=== PATIENT | female | born 1975 | race American Indian/Alaskan Native ===

== ENCOUNTER 2016-11-27 18:09 | Emergency (ER) | payer OTHER ==
[2016-11-27 18:47] VITALS: BP 194/95
[2016-11-27 19:15] LABS: Basophils % (Auto) 0.3 % (0.0-1.8); Eosinophils % (Auto) 11.6 % (0.0-4.3); Hematocrit 31.5 % (30.3-42.9); Hemoglobin 10.7 gm/dl (10.1-14.3); Mean Corpuscular HGB Conc 34 % (30-34); Mean Corpuscular Hemoglobin 30 pg (28-32); Mean Corpuscular Volume 87 fl (79-97); Platelet Count 436 K/mm3 (140-440); Red Blood Count 3.62 M/mm3 (3.65-5.03); Red Cell Distribution Width 15.5 % (13.2-15.2); White Blood Count 7.7 K/mm3 (4.5-11.0)
[2016-11-27 19:30] LABS: Alanine Aminotransferase 10 units/L (7-56); Albumin 4.1 g/dL (3.9-5); Albumin/Globulin Ratio 1.1 %; Alkaline Phosphatase 76 units/L (35-129); Anion Gap 17 mmol/L; Bilirubin,Total 0.2 mg/dL (0.1-1.2); Blood Urea Nitrogen 13 mg/dL (7-17); Calcium 8.9 mg/dL (8.4-10.2); Carbon Dioxide 27 mmol/L (22-30); Chloride 94.6 mmol/L (98-107); Glucose 110 mg/dL (65-100); Lipase 28 units/L (13-60); Potassium 3.4 mmol/L (3.6-5.0); Sodium 135 mmol/L (137-145); Total Protein 7.7 g/dL (6.3-8.2)
[2016-11-28 00:05] LABS: Bilirubin,Urine NEG (Negative); Blood,Urine NEG (Negative); Ketones,Urine NEG (Negative); Leukocyte Esterase,Urine NEG (Negative); Mucus,Urine 3+ /HPF; Nitrite,Urine NEG (Negative); Protein,Urine <15 mg/dL mg/dL (Negative)
--- NOTE | 2016-11-29 15:16 | ED Elopement Review ---
ED Pt Elopement review - Results review Lab results: Laboratory Tests 11/27/16 11/27/16 11/27/16 18:53 18:53 Unknown WBC 7.7 RBC 3.62 L Hgb 10.7 Hct 31.5 MCV 87 MCH 30 MCHC 34 RDW 15.5 H Plt Count 436 Lymph % (Auto) 25.1 [place] % (Auto) 9.4 H Eos % (Auto) 11.6 H Baso % (Auto) 0.3 Lymph # 1.9 [place] # 0.7 Eos # 0.9 H Baso # 0.0 Seg Neutrophils % 53.6 Seg Neutrophils # 4.1 Sodium 135 L Potassium 3.4 L Chloride 94.6 L Carbon Dioxide 27 Anion Gap 17 BUN 13 Creatinine 0.5 L Estimated GFR > 60 BUN/Creatinine Ratio 26.00 Glucose 110 H Calcium 8.9 Total Bilirubin 0.2 AST 12 ALT 10 Alkaline Phosphatase 76 Total Protein 7.7 Albumin 4.1 Albumin/Globulin Ratio 1.1 Lipase 28 Urine Color Yellow Urine Turbidity Clear Urine pH 5.0 Ur Specific [place] 1.030 Urine Protein <15 mg/dl Urine Glucose (UA) Neg Urine Ketones Neg Urine Blood Neg Urine Nitrite Neg Ur Reducing Substances Not Reportable Urine Bilirubin Neg Urine Ictotest Not Reportable Urine Urobilinogen 4.0 Ur Leukocyte Esterase Neg Urine WBC (Auto) 4.0 Urine RBC (Auto) 2.0 U Epithel Cells (Auto) 4.0 Urine Mucus 3+ Urine HCG, Qual Negative - Call Back decision Pt Call Back Decision: No action required
== END 2016-11-28 01:30 | disposition left against medical advice (07) ==
LOC: ED 18:09
DX: R11.2 Nausea with vomiting, unspecified (principal); R19.7 Diarrhea, unspecified; R10.9 Unspecified abdominal pain; Z53.21 Procedure and treatment not carried out due to patient leaving prior to being seen by health care provider
CPT/HCPCS: 36415; 80053; 81001; 81025; 83690; 85025

== ENCOUNTER 2017-07-25 17:52 | Inpatient (IN) | payer OTHER ==
[2017-07-25 18:38] LABS: Basophils % (Auto) 1.6 % (0.0-1.8); Eosinophils % (Auto) 14.5 % (0.0-4.3); Hematocrit 32.7 % (30.3-42.9); Hemoglobin 10.7 gm/dl (10.1-14.3); Mean Corpuscular HGB Conc 33 % (30-34); Mean Corpuscular Hemoglobin 28 pg (28-32); Mean Corpuscular Volume 87 fl (79-97); Platelet Count 440 K/mm3 (140-440); Red Blood Count 3.78 M/mm3 (3.65-5.03); Red Cell Distribution Width 15.8 % (13.2-15.2); White Blood Count 7.4 K/mm3 (4.5-11.0)
--- NOTE | 2017-07-25 18:45 | Cat Scan Report ---
FINAL REPORT PROCEDURE: CT HEAD/BRAIN WO CON TECHNIQUE: Computerized tomography of the head was performed without contrast material. DLP 1619.50 mGy-cm. HISTORY: Neuro deficits \T\gt; 6hrs or symptoms present upon awakening. COMPARISON: No prior studies are available for comparison. FINDINGS: Skull and scalp: Normal. Paranasal sinuses: Normal. Ventricles and subarachnoid spaces: Normal. Cerebrum: No evidence of hemorrhage, acute infarction or mass . Cerebellum and brainstem: No evidence of hemorrhage, acute infarction or mass. Vasculature: Normal. Comments: None. IMPRESSION: No CT evidence of acute intracranial pathology. Recommend MRI of the brain for further evaluation if there is continued clinical concern and if patient has no contraindication to MRI. Findings were discussed by telephone with Dr. Cazares at 5:40 p.m. central standard time on 07/25/2017.
[2017-07-25 18:47] LABS: INR 0.9 (0.87-1.13)
[2017-07-25 18:48] LABS: Partial Thromboplastin Time 29.7 Sec. (24.2-36.6)
[2017-07-25 18:56] LABS: Anion Gap 17 mmol/L; BUN/Creatinine Ratio 23; Blood Urea Nitrogen 14 mg/dL (7-17); Calcium 9.4 mg/dL (8.4-10.2); Carbon Dioxide 26 mmol/L (22-30); Chloride 99.3 mmol/L (98-107); Glucose 84 mg/dL (65-100); Potassium 4.2 mmol/L (3.6-5.0); Sodium 138 mmol/L (137-145)
[2017-07-25] MEDS ORDERED: SUBLIMAZE IV ONE (20:11)
--- NOTE | 2017-07-25 21:35 | Emergency Department Report ---
ED Neuro Deficit HPI - General Chief Complaint: Neuro Symptoms/Deficit Stated Complaint: LEFT SIDE NUMBNESS AND LEG PAIN Time Seen by Provider: 07/25/17 18:36 Source: patient Mode of arrival: Ambulatory Limitations: No Limitations - History of Present Illness Initial Comments: Vision is a 41-year-old female past medical history of hypertension seizures and liver disease who presents with left sided weakness. She states that symptoms started initially at 1300 hrs. today. Patient states that when her symptoms occurred she initially felt pain and then paresthesia. She states her pain as a 7 out of 10 located to the left side of her body nothing made it better or worse she also had some weakness on the left side of her body. It radiated throughout her body. She also stated that she had some decreased peripheral vision in her left eye. Patient denies having any of these symptoms prior before in the past. Patient also states that she's having chest pains at around 10 self in the middle of her chest doesn't radiate it occurred when her symptoms occurred nothing made the chest pain better or worse. - Related Data Home Medications: Home Medications Medication Instructions Recorded Confirmed Last Taken Albuterol *Only Ed* [Proventil 2.5 mg INHALATION PRN PRN 08/20/15 05/30/16 Unknown 0.5% NEBS] Previous Rx's Medication Instructions Recorded Last Taken Type Hydrochlorothiazide [HCTZ] 25 mg PO QDAY #60 tablet 02/11/15 08/19/15 Rx Lisinopril [Zestril TAB] 40 mg PO QDAY #60 tablet 02/11/15 08/19/15 Rx cloNIDine [Catapres] 0.1 mg PO QHS #60 tablet 02/11/15 08/19/15 Rx Divalproex [Satish Duckworth] 125 mg PO BID #60 tablet 07/25/15 08/19/15 Rx AtorvaSTATin [Lipitor] 20 mg PO QHS #30 tablet 08/22/15 Unknown Rx Metoprolol [Lopressor TAB] 12.5 mg PO BID #60 tablet 08/22/15 Unknown Rx Rivaroxaban [Xarelto] 0 mg PO BID #42 tablet 05/30/16 Unknown Rx Cyclobenzaprine [Flexeril] 10 mg PO TID PRN #30 tablet 08/16/16 Unknown Rx Ibuprofen [Motrin] 800 mg PO Q8HR PRN #30 tablet 08/16/16 Unknown Rx Allergies/Adverse Reactions: Allergies Allergy/AdvReac Type Severity Reaction Status Date / Time Iodinated Contrast- Oral and Allergy Anaphylaxis Verified 08/22/15 08:07 IV Dye Penicillins Allergy Dizziness Verified 07/24/15 23:06 ED Review of Systems ROS: Stated complaint: LEFT SIDE NUMBNESS AND LEG PAIN Other details as noted in HPI Constitutional: denies: chills, fever Eyes: denies: eye pain, eye discharge, vision change ENT: denies: ear pain, throat pain Respiratory: denies: cough, shortness of breath, wheezing Cardiovascular: chest pain. denies: palpitations Endocrine: no symptoms reported Gastrointestinal: denies: abdominal pain, nausea, diarrhea Genitourinary: denies: urgency, dysuria, discharge Musculoskeletal: denies: back pain, joint swelling, arthralgia Skin: denies: rash, lesions Neurological: weakness, numbness, paresthesias. denies: headache Psychiatric: denies: anxiety, depression Hematological/Lymphatic: denies: easy bleeding, easy bruising ED Past Medical Hx - Past Medical History Previous Medical History?: Yes Hx Hypertension: Yes Hx Congestive Heart Failure: No Hx Diabetes: No Hx Liver Disease: Yes (cirrhosis) Hx Renal Disease: Yes Hx Seizures: Yes Hx Asthma: No Hx COPD: No Hx HIV: No Additional medical history: lupus, sarcodosis. Patient states that she has a history of cirrhosis from "fatty foods". - Surgical History Past Surgical History?: Yes Additional Surgical History: cryo surgery - Social History Smoking Status: Current Every Day Smoker Substance Use Type: None - Medications Home Medications: Home Medications Medication Instructions Recorded Confirmed Last Taken Type Hydrochlorothiazide [HCTZ] 25 mg PO QDAY #60 tablet 02/11/15 05/30/16 08/19/15 Rx Lisinopril [Zestril TAB] 40 mg PO QDAY #60 tablet 02/11/15 05/30/16 08/19/15 Rx cloNIDine [Catapres] 0.1 mg PO QHS #60 tablet 02/11/15 05/30/16 08/19/[address] [Depakote Dr] 125 mg PO BID #60 tablet 07/25/15 05/30/16 08/19/15 Rx Albuterol *Only Ed* [Proventil 2.5 mg INHALATION PRN PRN 08/20/15 05/30/16 Unknown History 0.5% NEBS] AtorvaSTATin [Lipitor] 20 mg PO QHS #30 tablet 08/22/15 05/30/16 Unknown Rx Metoprolol [Lopressor TAB] 12.5 mg PO BID #60 tablet 08/22/15 05/30/16 Unknown Rx Rivaroxaban [Xarelto] 0 mg PO BID #42 tablet 05/30/16 Unknown Rx Cyclobenzaprine [Flexeril] 10 mg PO TID PRN #30 tablet 08/16/16 Unknown Rx Ibuprofen [Motrin] 800 mg PO Q8HR PRN #30 tablet 08/16/16 Unknown Rx ED Neuro Physical Exam - General Limitations: No Limitations General appearance: alert, in no apparent distress Suspected Stroke: No - Head Head exam: Present: atraumatic, normocephalic - Eye Eye exam: Present: normal appearance - ENT ENT exam: Present: mucous membranes moist - Neck Neck exam: Present: normal inspection - Respiratory Respiratory exam: Present: normal lung sounds bilaterally. Absent: respiratory distress - Cardiovascular Cardiovascular Exam: Present: regular rate, normal rhythm. Absent: systolic murmur, diastolic murmur, rubs, gallop - GI/Abdominal GI/Abdominal exam: Present: soft, normal bowel sounds - Extremities Exam Extremities exam: Present: normal inspection - Back Exam Back exam: Present: normal inspection - Neurological Exam Neurological exam: Present: other - NIHSS Assessment Interval: Baseline 1a. Level of Consciousness: alert 1b. LOC Questions: answers correctly 1c. LOC Commands: performs tasks correctly 2. Best Gaze: normal 3. Visual: no visual loss 4. Facial Palsy: complete paralysis 5b. Motor Arm Right: no drift 5a. Motor Arm Left: no drift 6a. Motor Leg Left: some gravity effort 6b. Motor Leg Right: no drift 7. Limb Ataxia: absent 8. Sensory: normal 9. Best Language: no aphasia 10. Dysarthria: normal 11. Extinction/Inattention: no abnormality Total Score: 5 Stroke Severity: Moderate Stroke - Psychiatric Psychiatric exam: Present: normal affect, normal mood - Skin Skin exam: Present: warm, dry, intact, normal color. Absent: rash ED Course Vital Signs 07/25/17 07/25/17 07/25/17 18:10 18:44 19:00 Temperature 99.2 F 99.1 F 99.2 F Pulse Rate 84 79 93 H Respiratory 18 15 14 Rate Blood Pressure 198/108 Blood Pressure 181/93 179/90 [Right] O2 Sat by Pulse 100 98 Oximetry 07/25/17 07/25/17 07/25/17 19:21 19:30 19:45 Temperature Pulse Rate 101 H 94 H 94 H Respiratory 18 14 18 Rate Blood Pressure 179/90 179/90 Blood Pressure [Right] O2 Sat by Pulse 99 99 100 Oximetry 07/25/17 07/25/17 07/25/17 20:00 20:15 20:30 Temperature Pulse Rate 92 H 90 91 H Respiratory 13 12 14 Rate Blood Pressure 182/96 182/96 173/92 Blood Pressure [Right] O2 Sat by Pulse 99 100 98 Oximetry 07/25/17 07/25/17 07/25/17 20:45 21:01 21:15 Temperature Pulse Rate 88 89 92 H Respiratory 16 18 15 Rate Blood Pressure 173/92 145/79 145/79 Blood Pressure [Right] O2 Sat by Pulse 96 95 98 Oximetry 07/25/17 07/25/17 07/25/17 21:45 22:00 22:15 Temperature Pulse Rate 81 75 79 Respiratory 21 13 15 Rate Blood Pressure 145/79 162/90 162/90 Blood Pressure [Right] O2 Sat by Pulse 98 97 98 Oximetry 07/25/17 07/25/17 07/25/17 22:30 22:45 23:00 Temperature Pulse Rate 82 83 86 Respiratory 13 13 15 Rate Blood Pressure 164/85 164/85 179/105 Blood Pressure [Right] O2 Sat by Pulse 98 99 97 Oximetry 07/25/17 07/25/17 07/25/17 23:15 23:30 23:33 Temperature Pulse Rate 89 87 81 Respiratory 15 17 17 Rate Blood Pressure 179/105 165/102 165/102 Blood Pressure [Right] O2 Sat by Pulse 100 100 98 Oximetry 07/25/17 23:45 Temperature Pulse Rate 85 Respiratory 16 Rate Blood Pressure 165/102 Blood Pressure [Right] O2 Sat by Pulse 99 Oximetry - Lab Data Result diagrams: 07/25/17 18:16 07/25/17 18:16 Lab Results 07/25/17 07/25/17 07/25/17 Range/Units 18:12 18:16 18:16 WBC 7.4 (4.5-11.0) K/mm3 RBC 3.78 (3.65-5.03) M/mm3 Hgb 10.7 (10.1-14.3) gm/dl Hct 32.7 (30.3-42.9) % MCV 87 (79-97) fl MCH 28 (28-32) pg MCHC 33 (30-34) % RDW 15.8 H (13.2-15.2) % Plt Count 440 (140-440) K/mm3 Lymph % (Auto) 29.2 (13.4-35.0) % [place] % (Auto) 9.2 H (0.0-7.3) % Eos % (Auto) 14.5 H (0.0-4.3) % Baso % (Auto) 1.6 (0.0-1.8) % Lymph # 2.2 (1.2-5.4) K/mm3 [place] # 0.7 (0.0-0.8) K/mm3 Eos # 1.1 H (0.0-0.4) K/mm3 Baso # 0.1 (0.0-0.1) K/mm3 Seg Neutrophils % 45.5 (40.0-70.0) % Seg Neutrophils # 3.4 (1.8-7.7) K/mm3 PT 12.6 (12.2-14.9) Sec. INR 0.90 (0.87-1.13) APTT 29.7 (24.2-36.6) Sec. Thrombin Time (15.1-19.6) Sec. Sodium (137-145) mmol/L Potassium (3.6-5.0) mmol/L Chloride (98-107) mmol/L Carbon Dioxide (22-30) mmol/L Anion Gap mmol/L BUN (7-17) mg/dL Creatinine (0.7-1.2) mg/dL Estimated GFR ml/min BUN/Creatinine Ratio % Glucose (65-100) mg/dL POC Glucose 80 (70-105) Calcium (8.4-10.2) mg/dL Troponin T (0.00-0.029) ng/mL 07/25/17 07/25/17 Range/Units 18:16 18:16 WBC (4.5-11.0) K/mm3 RBC (3.65-5.03) M/mm3 Hgb (10.1-14.3) gm/dl Hct (30.3-42.9) % MCV (79-97) fl MCH (28-32) pg MCHC (30-34) % RDW (13.2-15.2) % Plt Count (140-440) K/mm3 Lymph % (Auto) (13.4-35.0) % [place] % (Auto) (0.0-7.3) % Eos % (Auto) (0.0-4.3) % Baso % (Auto) (0.0-1.8) % Lymph # (1.2-5.4) K/mm3 [place] # (0.0-0.8) K/mm3 Eos # (0.0-0.4) K/mm3 Baso # (0.0-0.1) K/mm3 Seg Neutrophils % (40.0-70.0) % Seg Neutrophils # (1.8-7.7) K/mm3 PT (12.2-14.9) Sec. INR (0.87-1.13) APTT (24.2-36.6) Sec. Thrombin Time 16.5 (15.1-19.6) Sec. Sodium 138 (137-145) mmol/L Potassium 4.2 (3.6-5.0) mmol/L Chloride 99.3 (98-107) mmol/L Carbon Dioxide 26 (22-30) mmol/L Anion Gap 17 mmol/L BUN 14 (7-17) mg/dL Creatinine 0.6 L (0.7-1.2) mg/dL Estimated GFR > 60 ml/min BUN/Creatinine Ratio 23 % Glucose 84 (65-100) mg/dL POC Glucose (70-105) Calcium 9.4 (8.4-10.2) mg/dL Troponin T < 0.010 (0.00-0.029) ng/mL - EKG Data -: EKG Interpreted by Me 07/26/17 01:09 EKG shows normal sinus rhythm no ST segment elevations or T-wave - Radiology Data Radiology results: report reviewed, image reviewed CT head: Shows no acute intracranial process Chest x-ray: Shows no acute cardiopulmonary disease - Medical Decision Making Chief medical diagnosis: TIA Differential medical diagnosis: Non-STEMI, hemorrhagic stroke, metabolic abnormality, Rajiv's paralysis, hypoglycemia I will get CT head, IV pain medication, chest x-ray, troponin, CBC, CMP Due to patient having TIA symptoms and chest pain patient will be admitted to the hospital for further workup. Patient will need an MRI. Discussed plan with patient patient agrees with plan. Patient is not TPA candidate as her symptoms started 5 hours prior to onset her NIH stroke scale is 5 however she is able to fully move her leg now. Critical care attestation.: If time is entered above; I have spent that time in minutes in the direct care of this critically ill patient, excluding procedure time. ED Disposition Clinical Impression: Left leg weakness, Chest pain in adult TIA (transient ischemic attack) Qualifiers: Transient cerebral ischemia type: unspecified Qualified Code(s): G45.9 - Transient cerebral ischemic attack, unspecified Disposition: 09 OP ADMIT IP TO THIS HOSP Is pt being admited?: Yes Does the pt Need Aspirin: No Condition: Stable
[2017-07-26] MEDS ORDERED: ZOFRAN IV PRN (00:23)
[2017-07-26] MEDS ORDERED: MILK OF MAGNESIA PO PRN (00:23)
[2017-07-26] MEDS ORDERED: SODIUM CHLORIDE FLUSH SYRINGE 10 ML IV PRN (00:23)
[2017-07-26] MEDS ORDERED: DULCOLAX PR PRN (00:23)
[2017-07-26] MEDS ORDERED: APRESOLINE IV PRN (00:23)
--- NOTE | 2017-07-26 00:30 | History and Physical Report ---
History of Present Illness Date of examination: 07/25/17 Date of admission: 07/25/17 23:15 History of present illness: 41-year-old woman with a history of lupus, sarcoid, seizure comes emergency room with complaints of left-sided weakness and numbness. Also complaining of Chest pain, t is in the left epigastric area which she is unable to describe, intermittent in nature lasting for 5 minutes, intensity 7/10, no radiation and she cannot identify exacerbating or relieving factors. Also complaining of dizziness. No nausea vomiting, diaphoresis or palpitation. Patient stopped taking xarelto to a few months ago because it made her feel tired. Also complaining of left flank pain Review Of Systems: Constitutional: no weight loss Ears, eyes, nose, mouth and throat: no nasal congestion, no nasal discharge, no sinus pressure, blurry vision, diplopia Neck: No neck pain or rigidity. Cardiovascular: no orthopnea, palpitations Respiratory: No shortness of breath, cough Gastrointestinal:no abdominal pain, hematochezia Genitourinary : no dysuria, frequency , hematuria Musculoskeletal: no muscle ache Integumentary: no rash, no pruritis Neurological: + parathesias, focal weakness Endocrine: no cold or heat intolerance, no polyuria or polydipsia Hematologic/Lymphatic: no easy bruising, no easy bleeding, no gland swelling Allergic/Immunologic: no urticaria, no angioedema. PAST SURGICAL HISTORY: None SOCIAL HISTORY: Smoke half pack a day, no alcohol or drugs FAMILY HISTORY: Hypertension Medications and Allergies Allergies Allergy/AdvReac Type Severity Reaction Status Date / Time Iodinated Contrast- Oral and Allergy Anaphylaxis Verified 08/22/15 08:07 IV Dye Penicillins Allergy Dizziness Verified 07/24/15 23:06 Home Medications Medication Instructions Recorded Confirmed Last Taken Type Hydrochlorothiazide [HCTZ] 25 mg PO QDAY #60 tablet 02/11/15 05/30/16 08/19/15 Rx Lisinopril [Zestril TAB] 40 mg PO QDAY #60 tablet 02/11/15 05/30/16 08/19/15 Rx cloNIDine [Catapres] 0.1 mg PO QHS #60 tablet 02/11/15 05/30/16 08/19/[address] [Satish Duckworth] 125 mg PO BID #60 tablet 10/05/30/16 08/19/15 Rx Albuterol *Only Ed* [Proventil 2.5 mg INHALATION PRN PRN 08/20/15 05/30/16 Unknown History 0.5% NEBS] AtorvaSTATin [Lipitor] 20 mg PO QHS #30 tablet 08/22/15 05/30/16 Unknown Rx Metoprolol [Lopressor TAB] 12.5 mg PO BID #60 tablet 08/22/15 05/30/16 Unknown Rx Rivaroxaban [Xarelto] 0 mg PO BID #42 tablet 05/30/16 Unknown Rx Cyclobenzaprine [Flexeril] 10 mg PO TID PRN #30 tablet 08/16/16 Unknown Rx Ibuprofen [Motrin] 800 mg PO Q8HR PRN #30 tablet 08/16/16 Unknown Rx Active Meds: Active Medications Acetaminophen (Tylenol) 650 mg PO Q4H PRN PRN Reason: Pain, Mild (1-3) Aspirin (Aspirin) 325 mg PO QDAY JEFFREY Bisacodyl (Dulcolax) 10 mg [place] QDAY PRN PRN Reason: Constipation Hydralazine HCl (Apresoline) 5 mg IV Q6H PRN PRN Reason: Keep SBP between 160-185 mm Hg Magnesium Hydroxide (Milk Of Magnesia) 30 ml PO Q4H PRN PRN Reason: Constipation Ondansetron HCl (Zofran) 4 mg IV Q8H PRN PRN Reason: N/V unrelieved by Reglan Simvastatin (Zocor) 20 mg PO QHS JEFFREY Sodium Chloride (Sodium Chloride Flush Syringe 10 Ml) 10 ml INJ PRN PRN PRN Reason: LINE FLUSH Exam - Physical Exam Narrative exam: Gen. appearance: Patient lying in bed, no apparent distress HEENT: Normocephalic, atraumatic, pupils equally round and reactive to light, extraocular movement intact, and no sclericterus,. No JVD or thyromegaly or nodule,neck supple, no carotid bruit ,mucous membranes moist, no exudate or erythema Heart: S1, S2, regular rate and rhythm Lungs: Clear to auscultation bilaterally, breathing comfortable Abdomen: Positive bowel sounds, nontender, nondistended, no organomegaly Extremity: No edema, cyanosis, clubbing Skin: No rash, nodules, warm, dry Neuro: Oriented 3, cranial nerves II-12 intact, speech is fluent, motor and sensory intact - Constitutional Vitals: Temp Pulse Resp BP Pulse Ox 99.2 F 85 16 165/102 99 07/25/17 19:00 07/25/17 23:45 07/25/17 23:45 07/25/17 23:45 07/25/17 23:45 Results - Labs CBC & Chem 7: 07/25/17 18:16 07/25/17 18:16 Labs: Abnormal lab results 07/25/17 Range/Units 23:30 D-Dimer 832.33 H (0-234) ng/mlDDU - Imaging and Cardiology EKG: image reviewed CT Scan - head: report reviewed Assessment and Plan Acute CVA Chest pain Left leg pain Lupus Sarcoid Seizure Admit to medicine [place] MRI, carotid Doppler, echo Do neuro checks, swallow screen [employer] neurology, physical and occupational therapy Start aspirin, statin, restart xarelto Check cardiac enzymes,d-dimer, Doppler of the lower extremity continue appropriate outpatient medications, dvt to prophylaxis initiated
[2017-07-26] MEDS: XARELTO PO SCH ×3 (01:08→16:25)
[2017-07-26] MEDS: TYLENOL PO PRN ×2 (01:08→05:54)
[2017-07-26 01:29] LABS: Creatine Kinase 69 units/L (30-135)
[2017-07-26 01:30] LABS: Creatine Kinase MB < 1.0 ng/mL (0.0-4.0)
[2017-07-26 06:36] LABS: Creatine Kinase 65 units/L (30-135); Creatine Kinase MB < 1.0 ng/mL (0.0-4.0)
--- NOTE | 2017-07-26 09:11 | XRay Report ---
AP CHEST: HISTORY: chest pain AP view of the chest demonstrates a normal mediastinal and cardiac contour with clear lungs and normal bony and soft tissue structures. IMPRESSION: Unremarkable AP chest. No acute process noted.
--- NOTE | 2017-07-26 09:12 | Nuclear Medicine Report ---
LUNG SCAN, VENTILATION AND PERFUSION: History: Chest pain. Technique: 5mci of Tc99m MAA was infused for the perfusion images. 15mci XE 133 gas was inhaled for the ventilatory images. Correlation is made with a chest x-ray dated 07/25/17. Findings: Inhalation of Xenon gas demonstrates a normal distribution of the activity throughout both lungs. There is mild retention of the radiotracer in both lungs suggesting mild obstructive pulmonary disease. After injection of Technetium 99m macroaggregated albumin gamma camera imaging of the lungs in multiple projections demonstrates normal pulmonary contours with a homogeneous distribution of activity. No focal areas of perfusion deficiency are identified. IMPRESSION: Low probability for pulmonary embolus.
[2017-07-26] MEDS: BABY ASPIRIN PO SCH (09:59)
[2017-07-26] MEDS ORDERED: ASPIRIN PO SCH (10:00)
--- NOTE | 2017-07-26 12:31 | Consultation ---
History of Present Illness - Reason for Consult Consult date: 07/26/17 stroke - History of Present Illness full note is dicated the CT and MRI of the brain are both normal and suspect this is HTN related do not see in the [employer] and diagnostic features of sarcoidosis the D-Dimer test is very abnormal this is being assessed Thanks for consult pulmonary studies in progress patient by report on Xarelto but PT is normal ! Medications and Allergies Allergies Allergy/AdvReac Type Severity Reaction Status Date / Time Iodinated Contrast- Oral and Allergy Anaphylaxis Verified 08/22/15 08:07 IV Dye Penicillins Allergy Dizziness Verified 07/24/15 23:06 Home Medications Medication Instructions Recorded Confirmed Last Taken Type Hydrochlorothiazide [HCTZ] 25 mg PO QDAY #60 tablet 02/11/15 07/26/17 1 Day Ago Rx Lisinopril [Zestril TAB] 40 mg PO QDAY #60 tablet 02/11/15 07/26/17 1 Day Ago Rx cloNIDine [Catapres] 0.1 mg PO QHS #60 tablet 02/11/15 07/26/17 1 Day Ago Rx D[address] [Depakote Dr] 125 mg PO BID #60 tablet 07/25/15 07/26/17 1 Day Ago Rx AtorvaSTATin [Lipitor] 20 mg PO QHS #30 tablet 08/22/15 07/26/17 1 Day Ago Rx Metoprolol [Lopressor TAB] 12.5 mg PO BID #60 tablet 08/22/15 07/26/17 1 Day Ago Rx Rivaroxaban [Xarelto] 0 mg PO BID #42 tablet 05/30/16 07/26/17 1 Day Ago Rx Active Meds: Active Medications Acetaminophen (Tylenol) 650 mg PO Q4H PRN PRN Reason: Pain, Mild (1-3) Last Admin: 07/26/17 05:54 Dose: 650 mg Aspirin (Baby Aspirin) 81 mg PO QDAY JEFFREY Last Admin: 07/26/17 09:59 Dose: Not Given Bisacodyl (Dulcolax) 10 mg [place] QDAY PRN PRN Reason: Constipation Hydralazine HCl (Apresoline) 5 mg IV Q6H PRN PRN Reason: Keep SBP between 160-185 mm Hg Last Admin: 07/26/17 01:18 Dose: 5 mg Magnesium Hydroxide (Milk Of Magnesia) 30 ml PO Q4H PRN PRN Reason: Constipation Ondansetron HCl (Zofran) 4 mg IV Q8H PRN PRN Reason: N/V unrelieved by Reglan Rivaroxaban (Xarelto) 10 mg PO DAILY JEFFREY PRN Reason: Protocol Simvastatin (Zocor) 20 mg PO QHS [facility] Sodium Chloride (Sodium Chloride Flush Syringe 10 Ml) 10 ml IV PRN PRN PRN Reason: LINE FLUSH Exam - Constitutional Vitals: Temp Pulse Resp BP Pulse Ox 98.3 F 88 20 150/96 96 07/26/17 04:42 07/26/17 04:42 07/26/17 04:42 07/26/17 04:42 07/26/17 04:42 Results - Labs CBC & Chem 7: 07/25/17 18:16 07/25/17 18:16 Labs: Abnormal lab results 07/25/17 Range/Units 23:30 D-Dimer 832.33 H (0-234) ng/mlDDU
--- NOTE | 2017-07-26 12:35 | Magnetic Resonance Report ---
MRI OF THE BRAIN WITHOUT CONTRAST: HISTORY: Stroke, CVA PROCEDURE: Multiplanar, multisequence MR imaging of the brain without IV contrast was performed. FINDINGS: Compared to the CT head performed 07/25/17. The brain parenchyma signal intensity and its peres white interface are within normal limits on all sequences. No evidence for acute ischemia, hemorrhage or mass. No chronic infarct or extra-axial fluid collection. The midline structures are central. The basal cisterns are patent. Normal ventricular size. The orbital cavities and sella turcica demonstrate no abnormality. The visualized paranasal sinuses and mastoid air cells are well aerated. IMPRESSION: Unremarkable non-enhanced MRI of the brain.
[2017-07-26] MEDS ORDERED: MORPHINE IV PRN (15:13)
[2017-07-26] MEDS ORDERED: ZOCOR PO SCH (22:00)
--- NOTE | 2017-07-26 23:26 | Progress Note ---
Assessment and Plan Assessment and plan: 41-year-old woman with a history of lupus, sarcoid, seizure comes emergency room with complaints of left-sided weakness and numbness. Also complaining of Chest pain, t is in the left epigastric area which she is unable to describe, intermittent in nature lasting for 5 minutes, intensity 7/10, no radiation and she cannot identify exacerbating or relieving factors. Also complaining of dizziness. No nausea vomiting, diaphoresis or palpitation. Patient stopped taking xarelto to a few months ago because it made her feel tired. Also complaining of left flank paiin Leftsided trainsent Hemiplegia possible TIA Presumed CVA Atypical chest pain Left leg pain POA Left leg pain Lupus Sarcoidosis Seizure Plan CT and MRI negative. 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 continue appropriate outpatient medications, dvt to prophylaxis initiated [facility] care at [facility] History Interval history: pateint seen and examined this am, no acute distress but sometimes she reports headaches, that is debilitating Hospitalist Physical - Constitutional Vitals: Temp Pulse Resp BP Pulse Ox 98.3 F 89 18 155/89 99 07/26/17 19:51 07/26/17 19:51 07/26/17 19:51 07/26/17 19:51 07/26/17 19:51 General appearance: Present: no acute distress - EENT Eyes: Present: PERRL, EOM intact ENT: hearing intact, clear oral mucosa, dentition normal - Neck Neck: Present: supple, normal ROM - Respiratory Respiratory: bilateral: CTA - Cardiovascular Rhythm: regular Heart Sounds: Present: S1 & S2 - Extremities Extremities: no ischemia, pulses symmetrical, No edema, normal temperature, normal color Extremity abnormal: deformity Peripheral Pulses: within normal limits - Abdominal General gastrointestinal: soft, non-tender, non-distended, normal bowel sounds - Integumentary Integumentary: Present: clear, warm, dry - Psychiatric Psychiatric: appropriate mood/affect, intact judgment & insight, memory intact, cooperative - Neurologic Neurologic: CNII-XII intact - Allied Health Allied health notes reviewed: nursing, social work Results - Labs CBC & Chem 7: 07/25/17 18:16 07/25/17 18:16 Labs: Laboratory Last Values WBC 7.4 K/mm3 (4.5-11.0) 07/25/17 18:16 RBC 3.78 M/mm3 (3.65-5.03) 07/25/17 18:16 Hgb 10.7 gm/dl (10.1-14.3) 07/25/17 18:16 Hct 32.7 % (30.3-42.9) 07/25/17 18:16 MCV 87 fl (79-97) 07/25/17 18:16 MCH 28 pg (28-32) 07/25/17 18:16 MCHC 33 % (30-34) 07/25/17 18:16 RDW 15.8 % (13.2-15.2) H 07/25/17 18:16 Plt Count 440 K/mm3 (140-440) 07/25/17 18:16 Lymph % (Auto) 29.2 % (13.4-35.0) 07/25/17 18:16 [place] % (Auto) 9.2 % (0.0-7.3) H 07/25/17 18:16 Eos % (Auto) 14.5 % (0.0-4.3) H 07/25/17 18:16 Baso % (Auto) 1.6 % (0.0-1.8) 07/25/17 18:16 Lymph # 2.2 K/mm3 (1.2-5.4) 07/25/17 18:16 [place]rill # 0.7 K/mm3 (0.0-0.8) 07/25/17 18:16 Eos # 1.1 K/mm3 (0.0-0.4) H 07/25/17 18:16 Baso # 0.1 K/mm3 (0.0-0.1) 07/25/17 18:16 Seg Neutrophils % 45.5 % (40.0-70.0) 07/25/17 18:16 Seg Neutrophils # 3.4 K/mm3 (1.8-7.7) 07/25/17 18:16 PT 12.6 Sec. (12.2-14.9) 07/25/17 18:16 INR 0.90 (0.87-1.13) 07/25/17 18:16 APTT 29.7 Sec. (24.2-36.6) 07/25/17 18:16 Thrombin Time 16.5 Sec. (15.1-19.6) 07/25/17 18:16 D-Dimer 832.33 ng/mlDDU (0-234) H 07/25/17 23:30 Sodium 138 mmol/L (137-145) 07/25/17 18:16 Potassium 4.2 mmol/L (3.6-5.0) 07/25/17 18:16 Chloride 99.3 mmol/L (98-107) 07/25/17 18:16 Carbon Dioxide 26 mmol/L (22-30) 07/25/17 18:16 Anion Gap 17 mmol/L 07/25/17 18:16 BUN 14 mg/dL (7-17) 07/25/17 18:16 Creatinine 0.6 mg/dL (0.7-1.2) L 07/25/17 18:16 Estimated GFR > 60 ml/min 07/25/17 18:16 BUN/Creatinine Ratio 23 % 07/25/17 18:16 Glucose 84 mg/dL (65-100) 07/25/17 18:16 POC Glucose 80 (70-105) 07/25/17 18:12 Calcium 9.4 mg/dL (8.4-10.2) 07/25/17 18:16 Total Creatine Kinase 65 units/L (30-135) 07/26/17 05:30 CK-MB (CK-2) < 1.0 ng/mL (0.0-4.0) 07/26/17 05:30 CK-MB (CK-2) Rel Index 1.5 (0-4) 07/26/17 05:30 Troponin T < 0.010 ng/mL (0.00-0.029) 07/26/17 05:30
[2017-07-27] MEDS: TYLENOL PO PRN ×2 (03:59→09:09)
--- NOTE | 2017-07-27 05:10 | Consultation ---
LOCATION: Room #485. HISTORY OF PRESENT ILLNESS: This is a 41-year-old black female with a long history of hypertension who presents to the Emergency Room with an elevated blood pressure of 198/108, complaining of left-sided weakness, left-sided sensory loss. She had had pain also ____ to the left side of her head. The pain did not radiate. She also has some mild chest pain. MEDICATIONS: She was taking clonidine, Depakote, atorvastatin, Lopressor, Xarelto, cyclobenzaprine, ibuprofen. REVIEW OF SYSTEMS: The patient denied any fever. Her major complaints at the time she was initially seen was left-sided numbness and leg pain. PAST MEDICAL HISTORY: She has a prior medical history of having ____ surgery. She has lupus, sarcoidosis and a history of cirrhosis from eating fatty foods by her history. PHYSICAL EXAMINATION: GENERAL: Shows slight weakness of the left arm, patchy sensory loss noted in the left arm, leg movements are normal, cranial nerves are entirely intact. Visual torres are full. Fundi are benign. Speech clear. Affect appropriate. NECK: Supple. No meningismus present. PRESENT VITAL SIGNS: Revealed the blood pressure to be 156/96, temperature is 98.3, pulse rate is 88, and respirations are 18. No seizure activity present. IMPRESSION: This patient's examination seems to be resolving as far as the sensory loss, motor weakness. I have reviewed over her CT scan, it is normal. I have also reviewed over the MRI scan, both diffusion-weighted images, T1 and T2 weighted images and there are no abnormalities of the type seen in stroke. Therefore, there is a suggestion is this is hypertensive encephalopathy as the cause of her symptoms. I am not sure of this history of her saying she has cirrhosis to the liver. I reviewed over her PT, it is 12.6 and I noted that her creatinine is 0.6. I will review over old records about this. The D-dimer test at this point is 832 and she is undergoing further evaluations for pulmonary function, this may be the origin of some of her symptoms. She is undergoing a workup for pulmonary embolization. I do note in her history that she was supposedly taking Xarelto, but her PT does not indicate that this was having any measurable effect. JOB# [id number] CAITLYN/ARABELLA
[2017-07-27] MEDS: XARELTO PO SCH (09:09)
[2017-07-27] MEDS: BABY ASPIRIN PO SCH (09:09)
--- NOTE | 2017-07-27 11:07 | Discharge Summary ---
Providers - Providers Date of Admission: 07/25/17 23:15 Date of discharge: 07/27/17 Attending physician: TOBI ZAVALA 07/26/17 Consult to Physician [CONS] Routine Consulting Provider: LAVELLE VALLADARES Reason For Exam: cva Place consult to:: neuro Notified:: office Phone number called:: [phone] Was contact made?: Yes If yes, spoke with:: amari Time called:: 09:21 07/26/17 00:23 Occupational Therapy Evaluate and Treat [CONS] Routine Comment: Reason For Exam: Neuro deficits Physical Therapy Evaluation and Treat [CONS] Routine Comment: Reason For Exam: Neuro deficits Primary care physician: HADOOP ENGINEER Hospitalization Condition: Stable Hospital course: Patient is a 41-year-old woman with a history of lupus, sarcoidosis, seizure disorder, migraines, chronic back pains (under the care of Dr. Sage Dunham at [facility], had mri back and seen a specialist) and tobacco dependancy who presented to the emergency room with complaints of left-sided weakness, frontal headaches, cp and numbness. Leftsided trainsent Hemiplegia possible TIA CVA ruled out Atypical chest pain, costochronditis suspected Left leg pain POA, appears to be Sciatica, which is chronic and under the care of Dr. Dunham Lupus Sarcoidosis Seizure -Brain CT and MRI unremarkale -CXR unremarkable -v/q lungs low probability for PE -TTE: lvh, est ef 55-60%, abnormal diastolic relaxation Disposition: DC-01 TO HOME OR SELFCARE Time spent for discharge: 32 minutes Core Measure Documentation - Palliative Care Palliative Care/ Comfort Measures: Not Applicable - Core Measures Any of the following diagnoses?: none - VTE Discharge Requirements Deep Vein Thrombosis/Pulmonary Embolism Present on Admission: No Has pt received <5 days of overlap therapy or INR<2.0: No Anticoagulant overlap therapy prescribed at discharge: No Contraindication No Overlap Therapy order at DC: Not Indicated Exam - Physical Exam Narrative exam: GEN: WDWN, NAD, AWAKE, ALERT, ORIENTATED 3 HEENT: NCAT, EOMI, PERRL, OP Clear NECK: supple, no adenopathy, no thyromegaly, no JVD CVS/HEART: RRR, NORMAL S1S2, NO JVD, pulses present bilaterally CHEST/LUNGS: CTA B, Symmetrical chest expansion, good air entry bilaterally GI/Abdomen: soft, NTND, good bowel sounds, no guarding or rebound /Bladder: no suprapubic tenderness, no CVA or paraspinal tenderness EXT/Skin: no c/c/e, no obvious rash MSK: FROM x 4 Neuro: CN 2-12 grossly intact, no new focal deficits Psych: calm - Constitutional Vitals: Temp Pulse Resp BP Pulse Ox 98.6 F 75 18 150/92 95 07/27/17 09:50 07/27/17 09:50 07/27/17 09:50 07/27/17 09:50 07/27/17 09:50 Plan Activity: no driving until cleared by PCP, other (no strenous activity until cleared by pcp) Diet: low salt Special Instructions: smoking cessation, physical therapy Follow up with: PRIMARY CARE, [Primary Care Provider] - 3-5 Days Forms: Work/School Release Form Prescriptions: Famotidine [Pepcid] 20 mg PO DAILY #14 day HYDROcodone/APAP 10-325 [[place] 10/325] 1 each PO Q6HR PRN #15 tablet PRN Reason: Pain , Severe (7-10) Nicotine [Habitrol] 21 mg TD DAILY #14 day
[2017-07-27 13:03] VITALS: BP 135/84
== END 2017-07-27 13:53 | disposition home or self-care (01) | DRG 206 ==
LOC: ED 17:52 → 4A 23:15
PROVIDERS: ADMIT Internal Medicine; ATTEND Internal Medicine
DX: M94.0 Chondrocostal junction syndrome [Tietze] (principal); G45.9 Transient cerebral ischemic attack, unspecified; I10 Essential (primary) hypertension; Z88.0 Allergy status to penicillin; Z79.899 Other long term (current) drug therapy; K74.60 Unspecified cirrhosis of liver; F17.210 Nicotine dependence, cigarettes, uncomplicated; M46.1 Sacroiliitis, not elsewhere classified; Z82.49 Family history of ischemic heart disease and other diseases of the circulatory system; M32.9 Systemic lupus erythematosus, unspecified
CPT/HCPCS: 36415; 70450; 70551; 71010; 78582; 80048; 80061; 82550; 82553; 82962; 84484; 85025; 85379; 85610; 85670; 85730; 93005; 93010; 93306; 93880; 93970; 96374; 99406; A9540; A9558; J0360; J2270; J2930; J3010

== ENCOUNTER 2017-10-15 12:25 | Emergency (ER) | payer OTHER ==
[2017-10-15 12:54] LABS: Hematocrit 32.3 % (30.3-42.9); Hemoglobin 10.5 gm/dl (10.1-14.3); Mean Corpuscular HGB Conc 32 % (30-34); Mean Corpuscular Hemoglobin 28 pg (28-32); Mean Corpuscular Volume 87 fl (79-97); Red Blood Count 3.73 M/mm3 (3.65-5.03)
[2017-10-15 12:55] LABS: Platelet Count 425 K/mm3 (140-440)
[2017-10-15 13:11] LABS: BUN/Creatinine Ratio 18; Blood Urea Nitrogen 7 mg/dL (7-17); Calcium 8.4 mg/dL (8.4-10.2); Hemolysis Index 4
--- NOTE | 2017-10-15 15:41 | XRay Report ---
ROUTINE CHEST, TWO VIEWS: HISTORY: Cough. The trachea, heart, mediastinal contour, lung torres and bony thorax are unremarkable. IMPRESSION: Unremarkable chest x-ray.
[2017-10-15] MEDS ORDERED: TYLENOL PO ONE (17:34)
[2017-10-15] MEDS ORDERED: TYLENOL ONE (17:34)
[2017-10-15 20:29] VITALS: BP 161/106
[2017-10-15] MEDS ORDERED: CLEOCIN IM ONE (20:38)
[2017-10-15] MEDS ORDERED: MOTRIN PO ONE (20:39)
--- NOTE | 2017-10-15 21:07 | Emergency Department Report ---
HPI - General Chief Complaint: Upper Respiratory Infection Time Seen by Provider: 10/15/17 20:08 - HPI HPI: 41-year-old female presents to the ED complaining cough, fever, sore throat 2 days. Patient states issues as intermittent congestion with cough. Patient also admits some generalized body aches. Patient states she is able to tolerate food well and some fluid. Patient also states that she noted she got a spider bite on Saturday on her left thigh. Patient states the area is red and painful to touch since the incident. She denies fevers/chills/nausea/vomiting/abdominal pain/chest pain/headache or blurry vision. ED Past Medical Hx - Past Medical History Hx Hypertension: Yes Hx Congestive Heart Failure: No Hx Diabetes: No Hx Liver Disease: Yes (cirrhosis) Hx Renal Disease: Yes Hx Seizures: Yes Hx Asthma: No Hx COPD: No Hx HIV: No Additional medical history: lupus, sarcodosis. Patient states that she has a history of cirrhosis from "fatty foods". - Surgical History Additional Surgical History: cryo surgery - Social History Smoking Status: Current Every Day Smoker Substance Use Type: None - Medications Home Medications: Home Medications Medication Instructions Recorded Confirmed Last Taken Type Hydrochlorothiazide [HCTZ] 25 mg PO QDAY #60 tablet 02/11/15 07/26/17 1 Day Ago Rx ~07/25/17 Lisinopril [Zestril TAB] 40 mg PO QDAY #60 tablet 02/11/15 07/26/17 1 Day Ago Rx ~07/25/17 cloNIDine [Catapres] 0.1 mg PO QHS #60 tablet 02/11/15 07/26/17 1 Day Ago Rx ~07/25/17 Divalproex [Satish Duckworth] 125 mg PO BID #60 tablet 07/25/15 07/26/17 1 Day Ago Rx ~07/25/17 AtorvaSTATin [Lipitor] 20 mg PO QHS #30 tablet 08/22/15 07/26/17 1 Day Ago Rx ~07/25/17 Metoprolol [Lopressor TAB] 12.5 mg PO BID #60 tablet 08/22/15 07/26/17 1 Day Ago Rx ~07/25/17 Rivaroxaban [Xarelto] 0 mg PO BID #42 tablet 05/30/16 07/26/17 1 Day Ago Rx ~07/25/17 Acetaminophen [Acetaminophen TAB] 325 mg PO Q4H PRN #30 tablet 07/27/17 Unknown Rx Famotidine [Pepcid] 20 mg PO DAILY #14 day 07/27/17 Unknown Rx HYDROcodone/APAP 10-325 [[place] 1 each PO Q6HR PRN #15 tablet 07/27/17 Unknown Rx 10/325] Nicotine [Habitrol] 21 mg TD DAILY #14 day 07/27/17 Unknown Rx Benzonatate [Tessalon Perles] 100 mg PO Q8HR #24 capsule 10/15/17 Unknown Rx Clindamycin [Clindamycin CAP] 600 mg PO BID #14 capsule 10/15/17 Unknown Rx D-Methorphan/PE/Acetaminophen 1 each PO Q6H #24 tablet 10/15/17 Unknown Rx [Tylenol Cold Max Day Caplet] Ibuprofen [Motrin 800 MG tab] 800 mg PO Q8H #40 tablet 10/15/17 Unknown Rx ED Review of Systems ROS: Stated complaint: FLU LIKE SYMPTOMS/INSECT BITE Other details as noted in HPI Constitutional: denies: chills, fever Eyes: denies: eye pain, eye discharge, vision change ENT: denies: ear pain, throat pain Respiratory: cough. denies: shortness of breath, wheezing Cardiovascular: denies: chest pain, palpitations Endocrine: no symptoms reported Gastrointestinal: denies: abdominal pain, nausea, diarrhea, constipation Genitourinary: denies: urgency, dysuria, frequency, hematuria, discharge Musculoskeletal: denies: back pain, joint swelling, arthralgia Skin: denies: rash, lesions Neurological: denies: headache, weakness, numbness, paresthesias, confusion Psychiatric: denies: anxiety, depression Hematological/Lymphatic: denies: easy bleeding, easy bruising Physical Exam - Physical Exam Vital Signs: Vital Signs 10/15/17 10/15/17 10/15/17 12:31 17:35 20:28 Temperature 98.3 F Pulse Rate 89 76 Respiratory 20 18 18 Rate Blood Pressure 176/102 Blood Pressure 161/106 [Right] O2 Sat by Pulse 99 99 Oximetry Physical Exam: GENERAL: Alert and oriented x3, no apparent distress, Normal Gait, atraumatic. HEAD: Head is normocephalic and a-traumatic. EARS: symetrical, atraumatic, non tender, ear canal clear and moderate cerumen, tympanic membrance non inflamed. gross auditory nml bilaterally. NOSE: Nose symetrical, Nontender,Nares appeared normal. MOUTH:Mouth is well hydrated and without lesions. Tonsils nonerythematous or swollen, Uvula midline, Tongue not elevated. Mucous membranes are moist. Posterior pharynx clear, no exudate or lesions. Patent airways. NECK: Supple. Non edematous, No lymphadenopathy or thyromegaly. LUNGS: Symetrical with respiration, No wheezing, no rales or crackles, CTAB. HEART: S1, S2 present, regular rate and rhythm without murmur, no rubs, no gallops. Non tender to palpation EXTREMITIES/MUSCULOSKELETAL: No cyanosis, clubbing, rash, lesions or edema. Full ROM bilaterally. UE/LE Pulses 2+ bilaterally. NEUROLOGIC: The patient is cooperative with no focal neurologic deficits. Normal speech. Normal sensation in bilateral upper and lower extremities, No loss of sensation, SKIN: Warm and dry, left posterior upper thigh had erythematous surrounding to test in 2 separate bite min. Tender to palpation at the area. No other lesions, ED Course Vital Signs 10/15/17 10/15/17 10/15/17 12:31 17:35 20:28 Temperature 98.3 F Pulse Rate 89 76 Respiratory 20 18 18 Rate Blood Pressure 176/102 Blood Pressure 161/106 [Right] O2 Sat by Pulse 99 99 Oximetry ED Medical Decision Making - Lab Data Result diagrams: 10/15/17 12:40 10/15/17 12:40 - Radiology Data Radiology results: report reviewed, image reviewed ROUTINE CHEST, TWO VIEWS: HISTORY: Cough. The trachea, heart, mediastinal contour, lung torres and bony thorax are unremarkable. IMPRESSION: Unremarkable chest x-ray. Transcribed By: TTR Dictated By: KATELYNN CARDOSO JR, MD Electronically Authenticated By: KATELYNN CARDSOO JR, MD Signed Date/Time: 10/15/17 1523 - Medical Decision Making 41-year-old female presents with uri/spiderbite. Fever resolved no fever during the ED stay. Influenza A and B test negative Chest x-ray ordered Results unremarkable. She received clindamycin 150 mg IM and ED I discussed all this findings with the patient. Discussed with mother symptomatic relief with [id number] medications. Discussed continue Tylenol and Motrin as needed for fever and pain. Discussed increase fluids and diet intake. Discussed rest much needed. Discussed daily vitamin C for immune booster. Discussed follow-up with rod mill operator in 3-5 days. I discussed the patient and she would be sent home on some antibiotics for the insect bite Patient verbally states she understands and will comply the following instructions and follow-up Discussed with the patient to return in 2 days for recheck of the spider bite to make sure it is not spreading. Area marked with skin marker Vital signs stable. Patient is in no acute distress Critical care attestation.: If time is entered above; I have spent that time in minutes in the direct care of this critically ill patient, excluding procedure time. ED Disposition Clinical Impression: Poorly-controlled hypertension Insect bite Qualifiers: Encounter type: initial encounter Qualified Code(s): W57.XXXA - Bitten or stung by nonvenomous insect and other nonvenomous arthropods, initial encounter URI (upper respiratory infection) Qualifiers: URI type: unspecified URI Qualified Code(s): J06.9 - Acute upper respiratory infection, unspecified Disposition: DC-01 TO HOME OR SELFCARE Is pt being admited?: No Does the pt Need Aspirin: No Condition: Stable Instructions: Upper Respiratory Infection (ED), Insect Bite or Sting (ED) Additional Instructions: Make sure to follow up with the primary care physician as discussed. Take all your medications as you've been prescribed. If you have any worsening symptoms or develop new symptoms please return to ED immediately. Suture blood pressure medication and symmetric at home. Return to ED in 2-3 days for recheck of spider bite Prescriptions: Benzonatate [Tessalon Perles] 100 mg PO Q8HR #24 capsule Clindamycin [Clindamycin CAP] 600 mg PO BID #14 capsule D-Methorphan/PE/Acetaminophen [Tylenol Cold Max Day Caplet] 1 each PO Q6H #24 tablet Ibuprofen [Motrin 800 MG tab] 800 mg PO Q8H #40 tablet Referrals: PRIMARY CARE, [Primary Care Provider] - 3-5 Days [facility] [Outside] - 3-5 Days [facility] [Outside] - 3-5 Days [facility] [Outside] - 3-5 Days Forms: Work/School Release Form(ED) Time of Disposition: 21:44
== END 2017-10-15 22:40 | disposition home or self-care (01) ==
LOC: ED 12:25
DX: J06.9 Acute upper respiratory infection, unspecified (principal); S70.362A Insect bite (nonvenomous), left thigh, initial encounter; I12.9 Hypertensive chronic kidney disease with stage 1 through stage 4 chronic kidney disease, or unspecified chronic kidney disease; N18.9 Chronic kidney disease, unspecified; F17.200 Nicotine dependence, unspecified, uncomplicated; Z91.041 Radiographic dye allergy status; Z88.0 Allergy status to penicillin; W57.XXXA Bitten or stung by nonvenomous insect and other nonvenomous arthropods, initial encounter; Y93.89 Activity, other specified; Y99.8 Other external cause status; Y92.89 Other specified places as the place of occurrence of the external cause
CPT/HCPCS: 36415; 71046; 80048; 85027; 87400; 96372